=== PATIENT | female | born 1985 | race Caucasian/White ===

== ENCOUNTER 2022-08-19 13:58 | Emergency (ER) | payer BC, MEDICAID ==
[~2022-08-19] VITALS: Ht 170.2 cm; Wt 107.3 kg
[~2022-08-19 13:58] MED LIST: NO HOME MEDS; ONDA4TAB6 PO; SUCR1ORA2 PO
[2022-08-19 16:47] LABS: BASOPHILS % (AUTO) 0.5 % (0-1); EOSINOPHILS # (AUTO) 0.2 X10'3 (0-0.9); EOSINOPHILS % (AUTO) 1.5 % (0-6); HEMOGLOBIN 10.6 g/dl (12.0-16.0); LYMPHOCYTES # (AUTO) 1.8 X10'3 (1.1-4.8); LYMPHOCYTES % (AUTO) 17.7 % (21-51); MEAN CORPUSCULAR HEMOGLOBIN 29.2 PG (27.0-31.0); MEAN CORPUSCULAR HGB CONC 33.1 g/dL (33.0-36.5); MEAN CORPUSCULAR VOLUME 88.2 FL (78-98); MEAN PLATELET VOLUME 7.6 FL (7.4-10.4); MONOCYTES # (AUTO) 0.6 X10'3 (0-0.9); NEUTROPHILS # (AUTO) 7.7 X10'3 (1.8-7.7); NEUTROPHILS % (AUTO) 74.3 % (42-75); PLATELET COUNT 196 X10'3 (140-440); RED BLOOD COUNT 3.63 X10'6 (4.20-5.60); RED CELL DISTRIBUTION WIDTH 17.9 % (11.5-14.5); WHITE BLOOD COUNT 10.4 X10'3 (4.5-11.0)
[2022-08-19 17:02] LABS: ALANINE AMINOTRANSFERASE 43 U/L (12-78); ALBUMIN 2.5 G/DL (3.4-5.0); ALBUMIN/GLOBULIN RATIO 0.4 (1.1-1.5); ALKALINE PHOSPHATASE 142 IU/L (46-116); ANION GAP 7 (8-16); ASPARTATE AMINO TRANSFERASE 139 U/L (10-37); BILIRUBIN,TOTAL 1.1 MG/DL (0.1-1.0); BLOOD UREA NITROGEN 1 MG/DL (7-18); BUN/CREATININE RATIO 1.4 (10.0-20.0); CHLORIDE 96 MMOL/L (99-107); CREATININE 0.69 MG/DL (0.40-0.90); GLUCOSE 107 MG/DL (70-104); LIPASE 102 U/L (73-393); POTASSIUM 3.9 MMOL/L (3.5-5.1); SODIUM 132 MMOL/L (135-145); TOTAL CARBON DIOXIDE 29.4 MMOL/L (24-32); TOTAL PROTEIN 8.6 G/DL (6.4-8.2); eGFR > 90 ML/MIN
[2022-08-19 17:12] LABS: URINE HCG NEGATIVE (NEG)
[2022-08-19 17:32] LABS: CLARITY,URINE SLIGHTLY CLOUDY (Clear); COLOR,URINE AMBER (Yellow); GLUCOSE, URINE NEGATIVE (Neg); KETONES,URINE NEGATIVE (Neg); LEUKOCYTE ESTERASE ,URINE NEGATIVE (Neg); NITRITES, URINE NEGATIVE (Neg); OCCULT BLOOD,URINE SMALL (Neg); PH,URINE 7.5 (4.8-8.0); PROTEIN,URINE TRACE mg/dl (Neg); UROBILINOGEN,URINE 0.2 E.U/dL (0.2-1.0)
[2022-08-19 17:40] LABS: UA COLLECTION TYPE CLN CATCH MIDSTREAM
[2022-08-19 17:42] LABS: BACTERIA,URINE 1+ /HPF (Neg); RBC,URINE 0-2 /HPF (0-2); SQUAMOUS EPITHELIAL CELL,UR FEW /LPF (FEW)
[2022-08-19 20:05] VITALS: BP 150/75
[2022-08-25 12:44] LABS: OCCULT BLOOD STOOL POSITIVE (Neg)
== END 2022-08-19 20:07 | disposition home or self-care (01) ==
LOC: ER 14:00
DX: K92.2 Gastrointestinal hemorrhage, unspecified (principal); R16.0 Hepatomegaly, not elsewhere classified; Z72.89 Other problems related to lifestyle; Z98.51 Tubal ligation status; Z79.899 Other long term (current) drug therapy
CPT/HCPCS: 36415; 74176; 80053; 81001; 81025; 82272; 83690; 85025; 87088; 99284

== ENCOUNTER 2022-11-16 06:41 | Day surgery (SDC) | payer BC ==
[~2022-11-16] VITALS: Ht 170.2 cm; Wt 98.8 kg
[~2022-11-16 06:41] MED LIST changes: +BUSP5TAB3 PO; +CITA20TA26 PO; +FURO40TA4 PO; -NO HOME MEDS; -ONDA4TAB6 PO; +SPIR50TA5 PO; -SUCR1ORA2 PO
[2022-11-16] MEDS ORDERED: albumin 25% 100mL bottle x 1 IV PRN (07:00)
[2022-11-16] MEDS ORDERED: FURO40TA4 PO (07:16)
[2022-11-16] MEDS ORDERED: SPIR100T5 PO (07:17)
[2022-11-16 07:25] VITALS: BP 128/66
--- NOTE | 2022-11-16 08:40 | NUR ---
Procedure cancelled due to no fluid. Pt dc'd to home via ambulatory with all belongings.
== END 2022-11-16 08:45 | disposition home or self-care (01) ==
LOC: SSTAY O 06:41
PROVIDERS: ATTEND Radiology Vascular & Interventional Radiology
DX: R18.8 Other ascites (principal); Z53.8 Procedure and treatment not carried out for other reasons; J90 Pleural effusion, not elsewhere classified; R14.0 Abdominal distension (gaseous); F32.A Depression, unspecified; F41.9 Anxiety disorder, unspecified; E28.2 Polycystic ovarian syndrome; E66.9 Obesity, unspecified; Z68.34 Body mass index [BMI] 34.0-34.9, adult; D64.9 Anemia, unspecified; Z79.899 Other long term (current) drug therapy
CPT/HCPCS: 76604; 76705; A6258

== ENCOUNTER 2022-12-11 07:07 | Day surgery (SDC) | payer BC ==
[~2022-12-11] VITALS: Ht 170.2 cm; Wt 86.4 kg
[~2022-12-11 07:07] MED LIST changes: +SPIR100T5 PO; -SPIR50TA5 PO
[2022-12-11 07:16] VITALS: BP 131/66; PULSE 80; RESP 12; TEMP 98.4; O2SAT 100
[2022-12-11] MEDS ORDERED: normal saline 1000ml 1,000 ML IV PRN (07:30)
[2022-12-11 08:07] LABS: BASOPHILS % (AUTO) 0.4 % (0-1); EOSINOPHILS # (AUTO) 0.1 X10'3 (0-0.9); EOSINOPHILS % (AUTO) 2.8 % (0-6); HEMATOCRIT 28.6 % (35.0-45.0); HEMOGLOBIN 9.6 g/dl (12.0-16.0); LYMPHOCYTES # (AUTO) 1.7 X10'3 (1.1-4.8); LYMPHOCYTES % (AUTO) 33.6 % (21-51); MEAN CORPUSCULAR HEMOGLOBIN 32.4 PG (27.0-31.0); MEAN CORPUSCULAR HGB CONC 33.5 g/dL (33.0-36.5); MEAN CORPUSCULAR VOLUME 96.7 FL (78-98); MEAN PLATELET VOLUME 7.7 FL (7.4-10.4); MONOCYTES # (AUTO) 0.3 X10'3 (0-0.9); MONOCYTES % (AUTO) 5.9 % (2-12); NEUTROPHILS # (AUTO) 2.9 X10'3 (1.8-7.7); NEUTROPHILS % (AUTO) 57.3 % (42-75); PLATELET COUNT 122 X10'3 (140-440); RED BLOOD COUNT 2.96 X10'6 (4.20-5.60); RED CELL DISTRIBUTION WIDTH 20.7 % (11.5-14.5)
[2022-12-11 10:12] LABS: ANISOCYTOSIS 3+; PLATELET ESTIMATE DECREASED; POLYCHROMASIA FEW; ROULEAUX 1+
--- NOTE | 2022-12-11 10:40 | NUR ---
procedure cancelled per Dr. Thomson. per Dr. Thomson pt to take Vitamin 10mg daily x3 days prior to biopsy. rx called in to [place] pharmacist at [facility]. pt verbalizes understanding and will followup with [facility] to reschedule biopsy. resume all home meds per MD. pt discharged in stable condition. pt ambulated to private vehicle.
== END 2022-12-11 10:40 | disposition home or self-care (01) ==
LOC: SSTAY O 07:07
PROVIDERS: ATTEND Radiology Diagnostic Radiology
DX: K76.89 Other specified diseases of liver (principal); Z53.8 Procedure and treatment not carried out for other reasons; R18.8 Other ascites; D68.9 Coagulation defect, unspecified
CPT/HCPCS: 36415; 85025; 85610; J7030; 85008

== ENCOUNTER 2023-03-06 15:22 | Emergency (ER) | payer BC ==
[~2023-03-06] VITALS: Ht 170.2 cm; Wt 75.2 kg
[~2023-03-06 15:22] MED LIST changes: -FURO40TA4 PO
[2023-03-06 15:58] VITALS: BP 119/55; PULSE 68; RESP 16; TEMP 97.9; O2SAT 100
[2023-03-06 16:49] LABS: ALANINE AMINOTRANSFERASE 47 U/L (12-78); ALBUMIN 2.9 G/DL (3.4-5.0); ALKALINE PHOSPHATASE 104 IU/L (46-116); ANION GAP 7 (8-16); ASPARTATE AMINO TRANSFERASE 76 U/L (10-37); BILIRUBIN,TOTAL 8.1 MG/DL (0.1-1.0); BLOOD UREA NITROGEN 8 MG/DL (7-18); BUN/CREATININE RATIO 6.3 (10.0-20.0); CALCIUM 9.2 MG/DL (8.5-10.1); CHLORIDE 85 MMOL/L (99-107); CREATININE 1.27 MG/DL (0.40-0.90); POTASSIUM 4.1 MMOL/L (3.5-5.1); TOTAL CARBON DIOXIDE 24.2 MMOL/L (24-32); eCRCL 59 ML/MIN; eGFR 47 ML/MIN
[2023-03-06 16:55] LABS: ALBUMIN/GLOBULIN RATIO 0.5 (1.1-1.5); GLUCOSE 116 MG/DL (70-104); TOTAL PROTEIN 8.4 G/DL (6.4-8.2)
[2023-03-06 16:58] LABS: SODIUM 116 MMOL/L (135-145)
[2023-03-06 17:00] LABS: BASOPHILS # (AUTO) 0.1 X10'3 (0-0.2); BASOPHILS % (AUTO) 1.1 % (0-1); EOSINOPHILS # (AUTO) 0.1 X10'3 (0-0.9); EOSINOPHILS % (AUTO) 1.8 % (0-6); HEMOGLOBIN 7.8 g/dl (12.0-16.0); LYMPHOCYTES # (AUTO) 1.6 X10'3 (1.1-4.8); LYMPHOCYTES % (AUTO) 21.6 % (21-51); MEAN CORPUSCULAR HEMOGLOBIN 35.2 PG (27.0-31.0); MEAN CORPUSCULAR HGB CONC 35.6 g/dL (33.0-36.5); MEAN CORPUSCULAR VOLUME 98.7 FL (78-98); MEAN PLATELET VOLUME 6.8 FL (7.4-10.4); MONOCYTES # (AUTO) 0.5 X10'3 (0-0.9); MONOCYTES % (AUTO) 6.3 % (2-12); NEUTROPHILS # (AUTO) 5.2 X10'3 (1.8-7.7); NEUTROPHILS % (AUTO) 69.2 % (42-75); PLATELET COUNT 95 X10'3 (140-440); RED BLOOD COUNT 2.21 X10'6 (4.20-5.60); RED CELL DISTRIBUTION WIDTH 15.4 % (11.5-14.5); WHITE BLOOD COUNT 7.5 X10'3 (4.5-11.0)
[2023-03-06 17:03] LABS: HEMATOCRIT 21.8 % (35.0-45.0)
[2023-03-06 17:24] LABS: PLATELET ESTIMATE DECREASED
[2023-03-06 17:25] LABS: BURR CELLS 2+; SCHISTOCYTES FEW
[2023-03-06 17:26] LABS: ROULEAUX 1+
--- NOTE | 2023-03-06 17:28 | NUR ---
LAB CALLED TO SAY THAT PATIENT HAS ANTIBODY IN HER BLOOD AND IT WILL TAKE EXTRA TIME TO CROSSMATCH BLOOD IS ANY IS ORDERED FOR HER. (PATIENT IS NOT IN LOBBY AT THIS TIME.)
== END 2023-03-06 19:59 | disposition left against medical advice (07) ==
LOC: ER 15:22
DX: R10.84 Generalized abdominal pain (principal); R53.1 Weakness; R11.2 Nausea with vomiting, unspecified; Z53.21 Procedure and treatment not carried out due to patient leaving prior to being seen by health care provider
CPT/HCPCS: 36415; 80053; 85008; 85025; 86885; 86900; 86901; 93005; 99281

== ENCOUNTER 2023-03-13 11:13 | Inpatient (IN) | payer BC ==
[~2023-03-13] VITALS: Ht 170.2 cm; Wt 77.8 kg
[2023-03-13 13:25] LABS: ALANINE AMINOTRANSFERASE 45 U/L (12-78); ALBUMIN 2.8 G/DL (3.4-5.0); ALKALINE PHOSPHATASE 148 IU/L (46-116); AMYLASE 51 U/L (25-115); ANION GAP 8 (8-16); ASPARTATE AMINO TRANSFERASE 84 U/L (10-37); BILIRUBIN,TOTAL 7.9 MG/DL (0.1-1.0); BLOOD UREA NITROGEN 9 MG/DL (7-18); BUN/CREATININE RATIO 6.7 (10.0-20.0); CALCIUM 8.8 MG/DL (8.5-10.1); CHLORIDE 89 MMOL/L (99-107); CREATININE 1.35 MG/DL (0.40-0.90); LIPASE 37 U/L (16-77); POTASSIUM 3.9 MMOL/L (3.5-5.1); TOTAL CARBON DIOXIDE 23.3 MMOL/L (24-32); eCRCL 55 ML/MIN; eGFR 44 ML/MIN
[2023-03-13 13:26] LABS: ALBUMIN/GLOBULIN RATIO 0.5 (1.1-1.5); GLUCOSE 119 MG/DL (70-104); SODIUM 120 MMOL/L (135-145); TOTAL PROTEIN 8.2 G/DL (6.4-8.2)
[2023-03-13 13:32] LABS: BASOPHILS % (AUTO) 0.3 % (0-1); EOSINOPHILS # (AUTO) 0.1 X10'3 (0-0.9); EOSINOPHILS % (AUTO) 1.4 % (0-6); HEMOGLOBIN 7.1 g/dl (12.0-16.0); LYMPHOCYTES # (AUTO) 1.2 X10'3 (1.1-4.8); MEAN PLATELET VOLUME 6.6 FL (7.4-10.4); MONOCYTES # (AUTO) 0.3 X10'3 (0-0.9); MONOCYTES % (AUTO) 4.6 % (2-12); NEUTROPHILS # (AUTO) 4.6 X10'3 (1.8-7.7); NEUTROPHILS % (AUTO) 74.7 % (42-75); PLATELET COUNT 80 X10'3 (140-440); WHITE BLOOD COUNT 6.2 X10'3 (4.5-11.0)
--- NOTE | 2023-03-13 14:00 | NUR ---
PT IN RM 4, ON MONITOR, FAMILY AT BS.
[2023-03-13 14:02] LABS: MEAN CORPUSCULAR VOLUME 99.4 FL (78-98)
[2023-03-13 14:03] LABS: MEAN CORPUSCULAR HEMOGLOBIN 35.6 PG (27.0-31.0); MEAN CORPUSCULAR HGB CONC 35.8 g/dL (33.0-36.5)
[2023-03-13 14:05] LABS: HEMATOCRIT 19.9 % (35.0-45.0)
--- NOTE | 2023-03-13 14:24 | NUR ---
IV SL PLACED BY [employer] ENGINEER HELPER W/US. PT RESTING IN NAD WITH FAMILY AT BS.
[2023-03-13] MEDS ORDERED: normal saline 1000ml 1,000 ML IV ONE (14:30)
--- NOTE | 2023-03-13 14:47 | NUR ---
BLOOD DRAWN FROM [facility] FOR LAB. PT TOLERATED WELL
--- NOTE | 2023-03-13 16:10 | NUR ---
PT WITH NO CHANGE FROM PREVIOUS. FAMILY AT BS, PT TO BE ADMITTED.
[2023-03-13] MEDS ORDERED: mag hydrox/Alum hydrox/simeth 30ml oral suspension PO PRN (16:45)
[2023-03-13] MEDS ORDERED: magnesium 4gm in 100ml NS 100 ML IV PRN (16:45)
[2023-03-13] MEDS ORDERED: magnesium hydroxide 30ml (MOM) UD suspension PO PRN (16:45)
[2023-03-13] MEDS ORDERED: potassium Cl 20 mEq SR tablet PO PRN ×2 (16:45)
[2023-03-13] MEDS ORDERED: acetaminophen 325mg tablet PO PRN (16:45)
[2023-03-13] MEDS ORDERED: morphine 2 MG/ML inj. syringe IV PRN ×2 (16:45)
[2023-03-13] MEDS ORDERED: potassium Cl 40MEQ/1/2NS 520ml 520 ML IV PRN (16:45)
[2023-03-13] MEDS ORDERED: magnesium 2GM in 50ml NS 50 ML IV PRN (16:45)
--- NOTE | 2023-03-13 17:37 | NUR ---
PT EATING PM MEAL WITH VISITOR AT .
[2023-03-13 18:00] VITALS: BP 104/41; PULSE 80; RESP 18; TEMP 98.4
--- NOTE | 2023-03-13 18:00 | NUR ---
Patient in room ORTHO 4013. I have received report from RACHELE Rodriguez and had the opportunity to ask questions and assume patient care.
--- NOTE | 2023-03-13 18:30 | NUR ---
Patient in room ORTHO 4013. I have received report from RACHELE Rodriguez and had the opportunity to ask questions and assume patient care.
--- NOTE | 2023-03-13 18:31 | NUR ---
Problems reprioritized. Patient report given, questions answered & plan of care reviewed with DANNY Klein.
[2023-03-13] MEDS: normal saline 1000ml 1,000 ML IV SCH ×2 (19:04→23:50)
[2023-03-13] MEDS ORDERED: BUSP10TA4 PO (19:59)
[2023-03-13 20:00] VITALS: RESP 18; O2SAT 99
[2023-03-13] MEDS: K and/or MAG REPLACEMENT MC SCH (21:09)
[2023-03-13] MEDS: docusate sod 100mg capsule PO SCH (21:33)
[2023-03-13 22:00] VITALS: BP 97/56; PULSE 82; RESP 18; TEMP 98; O2SAT 99
[2023-03-14] VITALS (10 sets, daily range): BP systolic 102–119; BP diastolic 35–51; PULSE 72–81; RESP 15–18; TEMP 98.2–99.8; O2SAT 98–100
--- NOTE | 2023-03-14 06:42 | NUR ---
Problems reprioritized. Patient report given, questions answered & plan of care reviewed with DANNY Waite.
--- NOTE | 2023-03-14 06:44 | NUR ---
Patient in room ORTHO 4013. I have received report from Latoya DELGADO and had the opportunity to ask questions and assume patient care.
[2023-03-14] MEDS: docusate sod 100mg capsule PO SCH ×2 (07:48→20:00)
[2023-03-14 07:50] LABS: BASOPHILS % (AUTO) 0.9 % (0-1); EOSINOPHILS # (AUTO) 0.1 X10'3 (0-0.9); EOSINOPHILS % (AUTO) 1.3 % (0-6); LYMPHOCYTES # (AUTO) 1.3 X10'3 (1.1-4.8); MEAN CORPUSCULAR HEMOGLOBIN 35.4 PG (27.0-31.0); MEAN CORPUSCULAR HGB CONC 35.4 g/dL (33.0-36.5); MEAN PLATELET VOLUME 6.8 FL (7.4-10.4); MONOCYTES # (AUTO) 0.3 X10'3 (0-0.9); MONOCYTES % (AUTO) 5.5 % (2-12); NEUTROPHILS # (AUTO) 3.3 X10'3 (1.8-7.7); NEUTROPHILS % (AUTO) 66.3 % (42-75); PLATELET COUNT 81 X10'3 (140-440); RED BLOOD COUNT 1.94 X10'6 (4.20-5.60); WHITE BLOOD COUNT 4.9 X10'3 (4.5-11.0)
[2023-03-14 07:52] LABS: HEMATOCRIT 19.4 % (35.0-45.0); HEMOGLOBIN 6.9 g/dl (12.0-16.0)
[2023-03-14] MEDS: ondansetron/PF 4mg/2ml inj IV PRN (07:52)
--- NOTE | 2023-03-14 07:56 | NUR ---
CRITICAL HGB 6.9, HCT 19.4, DR MINOR AWAITING CALL BACK PAGER ID: [phone] MESSAGE: TITI 4013B: HGB 6.9, HCT 19.4. THANK YOU ARNULFO [id number]
[2023-03-14 07:58] LABS: ALANINE AMINOTRANSFERASE 43 U/L (12-78); ALBUMIN 2.6 G/DL (3.4-5.0); ALKALINE PHOSPHATASE 132 IU/L (46-116); ANION GAP 9 (8-16); ASPARTATE AMINO TRANSFERASE 77 U/L (10-37); BILIRUBIN,TOTAL 7.3 MG/DL (0.1-1.0); BLOOD UREA NITROGEN 9 MG/DL (7-18); BUN/CREATININE RATIO 7.4 (10.0-20.0); CALCIUM 8.8 MG/DL (8.5-10.1); CHLORIDE 95 MMOL/L (99-107); CREATININE 1.21 MG/DL (0.40-0.90); GLUCOSE 94 MG/DL (70-104); MAGNESIUM 1.6 MG/DL (1.5-2.4); POTASSIUM 4.1 MMOL/L (3.5-5.1); SODIUM 127 MMOL/L (135-145); TOTAL CARBON DIOXIDE 23.2 MMOL/L (24-32); eCRCL 62 ML/MIN; eGFR 50 ML/MIN
[2023-03-14] MEDS: K and/or MAG REPLACEMENT MC SCH ×2 (08:00→20:00)
[2023-03-14 08:04] LABS: ALBUMIN/GLOBULIN RATIO 0.5 (1.1-1.5); TOTAL PROTEIN 7.5 G/DL (6.4-8.2)
[2023-03-14] MEDS: normal saline 1000ml 1,000 ML IV SCH (13:51)
--- NOTE | 2023-03-14 17:38 | NUR ---
PAGER ID: [phone] MESSAGE: Ravindra hassan re: [id number] Avani, Patient has home medications that need to be addressed, she doesnt want to miss her medications for depression. Addendum: 03/14/23 at 1757 by Zeke Herron RN This message sent to alfonso RODRIGUEZ.
--- NOTE | 2023-03-14 17:56 | NUR ---
PAGER ID: [phone] MESSAGE: Ravindra Bennett re: Avani Patient wanting to make sure home medications are addressed before end of shift. Patient needs her depression medications. Thanks
--- NOTE | 2023-03-14 18:32 | NUR ---
Patient in room ORTHO 4013b. I have received report from Kaye RN and had the opportunity to ask questions and assume patient care.
[2023-03-14] MEDS: busPIRone 5mg tablet PO SCH (20:25)
[2023-03-14 21:37] LABS: MEAN CORPUSCULAR HEMOGLOBIN 35.1 PG (27.0-31.0); MEAN CORPUSCULAR HGB CONC 36.2 g/dL (33.0-36.5); MEAN CORPUSCULAR VOLUME 96.9 FL (78-98); MEAN PLATELET VOLUME 6.8 FL (7.4-10.4); PLATELET COUNT 76 X10'3 (140-440); RED BLOOD COUNT 1.98 X10'6 (4.20-5.60); RED CELL DISTRIBUTION WIDTH 17.3 % (11.5-14.5); WHITE BLOOD COUNT 5.6 X10'3 (4.5-11.0)
[2023-03-14 21:47] LABS: HEMATOCRIT 19.2 % (35.0-45.0)
--- NOTE | 2023-03-14 22:25 | NUR ---
INFORMED DR. STEWART ABOUT HGB 7.0,ADVISED TO RECHECK CBC IN AM.
[2023-03-15] VITALS (10 sets, daily range): BP systolic 103–116; BP diastolic 31–60; PULSE 72–85; RESP 14–16; TEMP 97.8–98.8; O2SAT 96–100
[2023-03-15] MEDS: normal saline 1000ml 1,000 ML IV SCH ×3 (00:03→21:18)
[2023-03-15 06:39] LABS: EOSINOPHILS # (AUTO) 0.1 X10'3 (0-0.9); LYMPHOCYTES # (AUTO) 1.2 X10'3 (1.1-4.8); LYMPHOCYTES % (AUTO) 24.4 % (21-51); MEAN CORPUSCULAR VOLUME 98.4 FL (78-98); MEAN PLATELET VOLUME 6.8 FL (7.4-10.4); MONOCYTES # (AUTO) 0.4 X10'3 (0-0.9); MONOCYTES % (AUTO) 7.4 % (2-12); NEUTROPHILS # (AUTO) 3.2 X10'3 (1.8-7.7)
[2023-03-15 06:46] LABS: BASOPHILS % (AUTO) 0.3 % (0-1); EOSINOPHILS % (AUTO) 2.3 % (0-6); MEAN CORPUSCULAR HEMOGLOBIN 35.6 PG (27.0-31.0); MEAN CORPUSCULAR HGB CONC 36.2 g/dL (33.0-36.5); NEUTROPHILS % (AUTO) 65.6 % (42-75); PLATELET COUNT 75 X10'3 (140-440); RED BLOOD COUNT 1.97 X10'6 (4.20-5.60); RED CELL DISTRIBUTION WIDTH 17.6 % (11.5-14.5); WHITE BLOOD COUNT 4.9 X10'3 (4.5-11.0)
[2023-03-15 07:02] LABS: HEMATOCRIT 19.4 % (35.0-45.0)
--- NOTE | 2023-03-15 07:10 | NUR ---
notified of critical h/h.
[2023-03-15 07:13] LABS: ALANINE AMINOTRANSFERASE 43 U/L (12-78); ALBUMIN 2.4 G/DL (3.4-5.0); ALKALINE PHOSPHATASE 103 IU/L (46-116); ANION GAP 7 (8-16); ASPARTATE AMINO TRANSFERASE 78 U/L (10-37); BILIRUBIN,TOTAL 7.3 MG/DL (0.1-1.0); BLOOD UREA NITROGEN 11 MG/DL (7-18); BUN/CREATININE RATIO 9.2 (10.0-20.0); CALCIUM 8.7 MG/DL (8.5-10.1); CHLORIDE 98 MMOL/L (99-107); GLUCOSE 92 MG/DL (70-104); MAGNESIUM 1.6 MG/DL (1.5-2.4); POTASSIUM 4.3 MMOL/L (3.5-5.1); SODIUM 129 MMOL/L (135-145); TOTAL CARBON DIOXIDE 24.2 MMOL/L (24-32); eCRCL 62 ML/MIN; eGFR 51 ML/MIN
[2023-03-15 07:24] LABS: ALBUMIN/GLOBULIN RATIO 0.5 (1.1-1.5); TOTAL PROTEIN 7.3 G/DL (6.4-8.2)
[2023-03-15] MEDS: busPIRone 5mg tablet PO SCH ×2 (07:48→20:51)
[2023-03-15] MEDS: docusate sod 100mg capsule PO SCH ×2 (07:48→20:00)
[2023-03-15] MEDS: K and/or MAG REPLACEMENT MC SCH ×2 (09:05→20:00)
[2023-03-15] MEDS ORDERED: PEG 3350/Na sulf,bicarb,Cl/KCl oral sol 4 liter bottle PO ONE (09:30)
[2023-03-15 10:12] LABS: ACANTHOCYTES 1+; ANISOCYTOSIS 1+; PLATELET ESTIMATE DECREASED
--- NOTE | 2023-03-15 16:25 | NUR ---
I charted my assessment on patient for RACHELE Anderson and have relinquished all care to RACHELE Anderson.
[2023-03-15] MEDS ORDERED: octreotide 100mcg/1 ml ampule IV ONE (17:05)
[2023-03-15 18:16] LABS: HEMOGLOBIN 7.6 g/dl (12.0-16.0); MEAN CORPUSCULAR HEMOGLOBIN 34.8 PG (27.0-31.0); MEAN CORPUSCULAR HGB CONC 35.5 g/dL (33.0-36.5); MEAN PLATELET VOLUME 6.7 FL (7.4-10.4); PLATELET COUNT 73 X10'3 (140-440); RED BLOOD COUNT 2.19 X10'6 (4.20-5.60); RED CELL DISTRIBUTION WIDTH 17.5 % (11.5-14.5); WHITE BLOOD COUNT 5.3 X10'3 (4.5-11.0)
[2023-03-15 18:30] LABS: HEMATOCRIT 21.5 % (35.0-45.0)
--- NOTE | 2023-03-15 19:30 | NUR ---
Assumed care of pt at this time
--- NOTE | 2023-03-15 20:00 | NUR ---
Spoke with Astrid at [facility] about this time she was already aware of pts current labs, pt has a bed available and she is informed that we are unable to get a ride from [facility] until 03/17 at 10am. She was to speak to about this. SHe also was given our nursing supervisors phone number.
[2023-03-15] MEDS: ondansetron/PF 4mg/2ml inj IV PRN (21:12)
--- NOTE | 2023-03-16 02:55 | NUR ---
Paged Dr. Singleton regarding orders, no labs for today. She wants Dr. Hackett to order them for today 03/16.
[2023-03-16 06:00] VITALS: BP 118/56; PULSE 84; RESP 12; TEMP 98.7; O2SAT 96
[2023-03-16 06:49] LABS: BASOPHILS % (AUTO) 0.5 % (0-1); EOSINOPHILS # (AUTO) 0.1 X10'3 (0-0.9); EOSINOPHILS % (AUTO) 2.2 % (0-6); HEMOGLOBIN 7.5 g/dl (12.0-16.0); LYMPHOCYTES # (AUTO) 1.3 X10'3 (1.1-4.8); LYMPHOCYTES % (AUTO) 27.4 % (21-51); MEAN CORPUSCULAR HEMOGLOBIN 34.8 PG (27.0-31.0); MEAN CORPUSCULAR HGB CONC 35.4 g/dL (33.0-36.5); MEAN CORPUSCULAR VOLUME 98.3 FL (78-98); MEAN PLATELET VOLUME 6.6 FL (7.4-10.4); MONOCYTES # (AUTO) 0.3 X10'3 (0-0.9); MONOCYTES % (AUTO) 6.4 % (2-12); NEUTROPHILS # (AUTO) 2.9 X10'3 (1.8-7.7); NEUTROPHILS % (AUTO) 63.5 % (42-75); PLATELET COUNT 72 X10'3 (140-440); RED BLOOD COUNT 2.14 X10'6 (4.20-5.60); RED CELL DISTRIBUTION WIDTH 17.3 % (11.5-14.5); WHITE BLOOD COUNT 4.6 X10'3 (4.5-11.0)
[2023-03-16 06:51] LABS: HEMATOCRIT 21.1 % (35.0-45.0)
--- NOTE | 2023-03-16 06:58 | NUR ---
Report to Monica
[2023-03-16 07:13] LABS: ALANINE AMINOTRANSFERASE 45 U/L (12-78); ALBUMIN 2.3 G/DL (3.4-5.0); ALKALINE PHOSPHATASE 104 IU/L (46-116); ANION GAP 8 (8-16); ASPARTATE AMINO TRANSFERASE 80 U/L (10-37); BLOOD UREA NITROGEN 9 MG/DL (7-18); BUN/CREATININE RATIO 7.7 (10.0-20.0); CALCIUM 8.8 MG/DL (8.5-10.1); CHLORIDE 104 MMOL/L (99-107); CREATININE 1.17 MG/DL (0.40-0.90); GLUCOSE 86 MG/DL (70-104); MAGNESIUM 1.8 MG/DL (1.5-2.4); POTASSIUM 4.5 MMOL/L (3.5-5.1); SODIUM 133 MMOL/L (135-145); TOTAL CARBON DIOXIDE 21.2 MMOL/L (24-32); eCRCL 64 ML/MIN; eGFR 52 ML/MIN
[2023-03-16 07:19] LABS: ALBUMIN/GLOBULIN RATIO 0.5 (1.1-1.5); TOTAL PROTEIN 6.9 G/DL (6.4-8.2)
[2023-03-16] MEDS: K and/or MAG REPLACEMENT MC SCH (08:00)
[2023-03-16] MEDS: docusate sod 100mg capsule PO SCH (08:13)
[2023-03-16] MEDS: busPIRone 5mg tablet PO SCH (08:13)
[2023-03-16] MEDS: normal saline 1000ml 1,000 ML IV SCH (10:09)
--- NOTE | 2023-03-16 12:40 | NUR ---
Attempted to give report to receiving nurse at [facility]. Receiving staff states that nurse unable to take report at the time. will try again.
--- NOTE | 2023-03-16 13:51 | NUR ---
Second attempt to provide report to accepting facility/ nurse prior to transport. No answer from the wing. Will try again.
--- NOTE | 2023-03-16 14:22 | NUR ---
Patient discharged via [facility] to [place] [facility] All personal belongings sent with, alert and appropriate at the time of discharge. Report given to [facility]/ airflight crew
--- NOTE | 2023-03-16 16:25 | NUR ---
MAINTENANCE SHOP WELDER documentation: I have reviewed and agree with all interventions, assessments performed and documented by .Danny JEFFREY
== END 2023-03-16 14:19 | disposition critical access hospital (66) | DRG 441 ==
LOC: ER 11:13 → ED HOLD 16:56 → EDBEDREQ 17:06 → ORTHO 4S 17:59
PROVIDERS: ADMIT Family Medicine; ATTEND Family Medicine
PROC: 30233N1 Transfusion of Nonautologous Red Blood Cells into Peripheral Vein, Percutaneous Approach (ICD-10-PCS; principal; 2023-03-14)
DX: K72.90 Hepatic failure, unspecified without coma (principal); N17.0 Acute kidney failure with tubular necrosis; D64.9 Anemia, unspecified; Z80.8 Family history of malignant neoplasm of other organs or systems
CPT/HCPCS: 36415; 36430; 80053; 82140; 82150; 83690; 83735; 85008; 85025; 85027; 86885; 86900; 86901; 86922; 87081; 96360; 99285; G0378; J2354; J2405; J7030; J7040; J7050; P9016

== ENCOUNTER 2023-07-12 21:16 | Emergency (ER) | payer BC, MEDICAID ==
[~2023-07-12] VITALS: Ht 170.2 cm; Wt 61.0 kg
[~2023-07-12 21:16] MED LIST changes: +BUSP10TA4 PO; -BUSP5TAB3 PO; -SPIR100T5 PO
[2023-07-12 22:11] LABS: BASOPHILS % (AUTO) 0.8 % (0-1); HEMATOCRIT 23.2 % (35.0-45.0); LYMPHOCYTES # (AUTO) 0.6 X10'3 (1.1-4.8); MEAN CORPUSCULAR VOLUME 89.1 FL (78-98); MONOCYTES # (AUTO) 0.2 X10'3 (0-0.9); NEUTROPHILS # (AUTO) 1.5 X10'3 (1.8-7.7)
[2023-07-12 22:13] LABS: EOSINOPHILS % (AUTO) 1.1 % (0-6); HEMOGLOBIN 7.8 g/dl (12.0-16.0); MEAN CORPUSCULAR HEMOGLOBIN 30.1 PG (27.0-31.0); MEAN CORPUSCULAR HGB CONC 33.8 g/dL (33.0-36.5); MEAN PLATELET VOLUME 8.4 FL (7.4-10.4); MONOCYTES % (AUTO) 7.6 % (2-12); NEUTROPHILS % (AUTO) 65.5 % (42-75); PLATELET COUNT 130 X10'3 (140-440); RED CELL DISTRIBUTION WIDTH 17.9 % (11.5-14.5); WHITE BLOOD COUNT 2.3 X10'3 (4.5-11.0)
[2023-07-12] MEDS: ondansetron 4mg rapidly disintigrating tab PO ONE (23:22)
[2023-07-12] MEDS: oxyCODONE IR 5mg (immed. release) tablet PO ONE (23:22)
[2023-07-12 23:32] LABS: ALANINE AMINOTRANSFERASE 26 U/L (12-78); ALBUMIN 3.5 G/DL (3.4-5.0); ALBUMIN/GLOBULIN RATIO 0.9 (1.1-1.5); ALKALINE PHOSPHATASE 90 IU/L (46-116); ANION GAP 10 (8-16); ASPARTATE AMINO TRANSFERASE 12 U/L (10-37); BILIRUBIN,TOTAL 1.2 MG/DL (0.1-1.0); BLOOD UREA NITROGEN 49 MG/DL (7-18); BUN/CREATININE RATIO 15.8 (10.0-20.0); CALCIUM 9.1 MG/DL (8.5-10.1); CHLORIDE 102 MMOL/L (99-107); GLUCOSE 115 MG/DL (70-104); POTASSIUM 5.9 MMOL/L (3.5-5.1); SODIUM 134 MMOL/L (135-145); TOTAL CARBON DIOXIDE 21.6 MMOL/L (24-32); TOTAL PROTEIN 7.6 G/DL (6.4-8.2); eCRCL 24 ML/MIN; eGFR 17 ML/MIN
[2023-07-12] MEDS ORDERED: calcium gluconate inj. 3 GM in normal saline 100ml IV soln 100 ML IV ONE (23:50)
[2023-07-13] MEDS: normal saline 1000ml 1,000 ML IV ONE (00:39)
[2023-07-13] MEDS: piperacillin/tazo 3.375gm/50ml 50 ML IV ONE (00:40)
[2023-07-13] MEDS: CALCIUM GLUC 1gm/50ml NACL,iso 50 ML IV ONE ×3 (00:41→02:31)
[2023-07-13 01:24] LABS: ANISOCYTOSIS 1+; ELLIPTOCYTES FEW; PLATELET ESTIMATE DECREASED; SCHISTOCYTES FEW; TOTAL CELLS COUNTED 100
[2023-07-13 01:25] LABS: HYPERSEGMENTED NEUTROPHILS FEW
[2023-07-13] MEDS: SODIUM ZIRCONIUM CYCLOSILICATE 10 GM POWD.PACK PO SCH (03:09)
[2023-07-13 04:28] LABS: BILIRUBIN,URINE NEGATIVE (Neg); CLARITY,URINE SLIGHTLY CLOUDY (Clear); COLOR,URINE YELLOW (Yellow); GLUCOSE, URINE NEGATIVE (Neg); KETONES,URINE NEGATIVE (Neg); LEUKOCYTE ESTERASE ,URINE NEGATIVE (Neg); NITRITES, URINE NEGATIVE (Neg); OCCULT BLOOD,URINE MODERATE (Neg); PH,URINE 5.5 (4.8-8.0); PROTEIN,URINE TRACE mg/dl (Neg); UROBILINOGEN,URINE 0.2 E.U/dL (0.2-1.0)
[2023-07-13 04:33] LABS: UA COLLECTION TYPE CLN CATCH MIDSTREAM
[2023-07-13 04:37] LABS: BACTERIA,URINE 1+ /HPF (Neg); MUCUS STRANDS NONE SEEN /LPF (Neg); SQUAMOUS EPITHELIAL CELL,UR MANY /LPF (FEW); WBC,URINE 0-4 /HPF (0-4)
[2023-07-13 04:38] LABS: COARSE GRANULAR CAST 0-3 /LPF (NEGATIVE)
[2023-07-13 04:39] LABS: CAL OXALATE CRYSTALS 1+ /HPF (NEGATIVE)
[2023-07-13] MEDS ORDERED: FLUC100T64 PO (04:47)
[2023-07-13] MEDS ORDERED: ATOV750O32 (04:47)
[2023-07-13] MEDS ORDERED: PRED15SO71 PO (04:47)
[2023-07-13] MEDS ORDERED: FOLI0.8T19 PO (04:47)
[2023-07-13] MEDS ORDERED: PANT-47 PO (04:47)
[2023-07-13] MEDS ORDERED: LOP12.5T PO (04:47)
[2023-07-13] MEDS ORDERED: MAGN400C PO (04:47)
[2023-07-13] MEDS ORDERED: MYCO500T PO (04:47)
[2023-07-13] MEDS ORDERED: VALG450T13 PO (04:47)
[2023-07-13] MEDS ORDERED: MYCO250C46 PO (04:47)
[2023-07-13] MEDS ORDERED: ASPI-611 PO (04:47)
[2023-07-13] MEDS ORDERED: TACR1CAP2 PO (04:47)
[2023-07-13] MEDS ORDERED: SODIUM ZIRCONIUM CYCLOSILICATE 10 GM POWD.PACK PO SCH (08:00)
[2023-07-13] MEDS: oxyCODONE IR 5mg (immed. release) tablet PO ONE ×3 (08:46→21:24)
[2023-07-13 14:09] LABS: ALBUMIN 3.1 G/DL (3.4-5.0); ANION GAP 15 (8-16); BLOOD UREA NITROGEN 49 MG/DL (7-18); BUN/CREATININE RATIO 15.2 (10.0-20.0); CALCIUM 9.3 MG/DL (8.5-10.1); CHLORIDE 101 MMOL/L (99-107); CREATININE 3.22 MG/DL (0.40-0.90); GLUCOSE 112 MG/DL (70-104); POTASSIUM 5.6 MMOL/L (3.5-5.1); SODIUM 136 MMOL/L (135-145); TOTAL CARBON DIOXIDE 20.2 MMOL/L (24-32); eCRCL 23 ML/MIN; eGFR 16 ML/MIN
[2023-07-13 22:01] VITALS: BP 124/62; PULSE 73; RESP 18; TEMP 98.1; O2SAT 98
== END 2023-07-13 22:09 | disposition short-term general hospital (02) ==
LOC: ER 21:17
DX: N17.9 Acute kidney failure, unspecified (principal); Z20.822 Contact with and (suspected) exposure to COVID-19; E87.6 Hypokalemia; Z88.8 Allergy status to other drugs, medicaments and biological substances; Z88.2 Allergy status to sulfonamides; Z79.82 Long term (current) use of aspirin; Z79.899 Other long term (current) drug therapy; Z98.51 Tubal ligation status
CPT/HCPCS: 36415; 71045; 74176; 80048; 80053; 81001; 83605; 84145; 85007; 85025; 87040; 87502; 87503; 87811; 96365; 96366; 96368; 99291; J0610; J2543; J7030; 99285

== ENCOUNTER 2023-11-18 11:22 | Emergency (ER) | payer BC, MEDICAID ==
[~2023-11-18] VITALS: Ht 170.2 cm; Wt 64.0 kg
[~2023-11-18 11:22] MED LIST changes: +ASPI-611 PO; +ATOV750O32; -CITA20TA26 PO; +FLUC100T64 PO; +FOLI0.8T52 PO; +LOP12.5T PO; +MAGN400C PO; +MYCO250C46 PO; +MYCO500T PO; +PANT-47 PO; +PRED15SO71 PO; +TACR1CAP2 PO; +VALG450T13 PO
[2023-11-18 11:30] VITALS: TEMP 98.6
[2023-11-18 12:04] LABS: BILIRUBIN,URINE NEGATIVE (Neg); CLARITY,URINE CLOUDY (Clear); COLOR,URINE STRAW (Yellow); GLUCOSE, URINE NEGATIVE (Neg); KETONES,URINE NEGATIVE (Neg); LEUKOCYTE ESTERASE ,URINE SMALL (Neg); NITRITES, URINE POSITIVE (Neg); OCCULT BLOOD,URINE LARGE (Neg); PROTEIN,URINE 100 mg/dl (Neg); UROBILINOGEN,URINE 0.2 E.U/dL (0.2-1.0)
[2023-11-18 12:08] LABS: HEMOGLOBIN 11.7 g/dl (12.0-16.0)
[2023-11-18 12:09] LABS: UA COLLECTION TYPE CLN CATCH MIDSTREAM
[2023-11-18 12:10] LABS: BASOPHILS % (AUTO) 0.9 % (0-1); EOSINOPHILS # (AUTO) 0.1 X10'3 (0-0.9); EOSINOPHILS % (AUTO) 2.1 % (0-6); HEMATOCRIT 34.3 % (35.0-45.0); LYMPHOCYTES # (AUTO) 0.8 X10'3 (1.1-4.8); LYMPHOCYTES % (AUTO) 23.3 % (21-51); MEAN CORPUSCULAR HEMOGLOBIN 31.3 PG (27.0-31.0); MEAN CORPUSCULAR HGB CONC 34.1 g/dL (33.0-36.5); MEAN CORPUSCULAR VOLUME 91.6 FL (78-98); MEAN PLATELET VOLUME 7.1 FL (7.4-10.4); MONOCYTES # (AUTO) 0.3 X10'3 (0-0.9); NEUTROPHILS # (AUTO) 2.2 X10'3 (1.8-7.7); NEUTROPHILS % (AUTO) 64.7 % (42-75); PLATELET COUNT 199 X10'3 (140-440); RED BLOOD COUNT 3.74 X10'6 (4.20-5.60); WHITE BLOOD COUNT 3.4 X10'3 (4.5-11.0)
[2023-11-18 12:10] LABS: URINE HCG NEGATIVE (NEG)
[2023-11-18 12:16] LABS: BACTERIA,URINE 2+ /HPF (Neg); MUCUS STRANDS NONE SEEN /LPF (Neg); SQUAMOUS EPITHELIAL CELL,UR FEW /LPF (FEW); WBC CLUMPS,URINE MANY /HPF (NEGATIVE); WBC,URINE TNTC /HPF (0-4)
[2023-11-18 12:27] LABS: ALANINE AMINOTRANSFERASE 28 U/L (12-78); ALBUMIN 3.7 G/DL (3.4-5.0); ALBUMIN/GLOBULIN RATIO 0.9 (1.1-1.5); ALKALINE PHOSPHATASE 89 IU/L (46-116); ANION GAP 9 (8-16); ASPARTATE AMINO TRANSFERASE 17 U/L (10-37); BILIRUBIN,TOTAL 1.1 MG/DL (0.1-1.0); BLOOD UREA NITROGEN 24 MG/DL (7-18); BUN/CREATININE RATIO 15.8 (10.0-20.0); CALCIUM 9.4 MG/DL (8.5-10.1); CHLORIDE 103 MMOL/L (99-107); CREATININE 1.52 MG/DL (0.40-0.90); GLUCOSE 109 MG/DL (70-104); LIPASE 29 U/L (16-77); POTASSIUM 5.2 MMOL/L (3.5-5.1); SODIUM 138 MMOL/L (135-145); TOTAL CARBON DIOXIDE 25.8 MMOL/L (24-32); TOTAL PROTEIN 7.6 G/DL (6.4-8.2); eCRCL 49 ML/MIN; eGFR 38 ML/MIN
[2023-11-18] MEDS: morphine 4 MG/ML inj SYRINge IV ONE (12:56)
[2023-11-18] MEDS: ondansetron/PF 4mg/2ml inj IV ONE (12:56)
[2023-11-18] MEDS: normal saline 1000ML IV soln IVB ONE (13:10)
[2023-11-18] MEDS: levoFLOXACIN 250mg tablet PO ONE (16:36)
[2023-11-18] MEDS ORDERED: LEVO250T74 PO (16:59)
[2023-11-18] MEDS ORDERED: HYDR-3973 PO (16:59)
[2023-11-18] MEDS: HYDROcodone/acetaminophen 10/325mg tab PO ONE (17:20)
[2023-11-18 17:26] VITALS: BP 128/88; PULSE 70; RESP 16; O2SAT 98
== END 2023-11-18 17:31 | disposition home or self-care (01) ==
LOC: ER 11:22
DX: N39.0 Urinary tract infection, site not specified (principal); Z88.8 Allergy status to other drugs, medicaments and biological substances; Z88.2 Allergy status to sulfonamides; Z79.82 Long term (current) use of aspirin; Z79.899 Other long term (current) drug therapy; Z79.2 Long term (current) use of antibiotics; Z98.51 Tubal ligation status
CPT/HCPCS: 74176; 80053; 81001; 81025; 83690; 85025; 87077; 87088; 87186; 96361; 96374; 96375; 99285; J2270; J2405; J7030

== ENCOUNTER 2023-12-15 11:44 | Emergency (ER) | payer BC, MEDICAID ==
[~2023-12-15] VITALS: Ht 170.2 cm; Wt 68.6 kg
[2023-12-15 12:37] LABS: BILIRUBIN,URINE NEGATIVE (Neg); CLARITY,URINE SLIGHTLY CLOUDY (Clear); COLOR,URINE YELLOW (Yellow); GLUCOSE, URINE NEGATIVE (Neg); KETONES,URINE NEGATIVE (Neg); LEUKOCYTE ESTERASE ,URINE NEGATIVE (Neg); NITRITES, URINE NEGATIVE (Neg); OCCULT BLOOD,URINE MODERATE (Neg); PROTEIN,URINE NEGATIVE (Neg); UROBILINOGEN,URINE 0.2 E.U/dL (0.2-1.0)
[2023-12-15 12:41] LABS: BASOPHILS % (AUTO) 1.2 % (0-1); EOSINOPHILS # (AUTO) 0.1 X10'3 (0-0.9); HEMOGLOBIN 11.1 g/dl (12.0-16.0); LYMPHOCYTES # (AUTO) 0.6 X10'3 (1.1-4.8); MEAN CORPUSCULAR VOLUME 90.8 FL (78-98); MONOCYTES # (AUTO) 0.2 X10'3 (0-0.9); NEUTROPHILS % (AUTO) 51.9 % (42-75); RED BLOOD COUNT 3.63 X10'6 (4.20-5.60)
[2023-12-15 12:42] LABS: SQUAMOUS EPITHELIAL CELL,UR MANY /LPF (FEW); UA COLLECTION TYPE NON-SPECIFIED
[2023-12-15 12:43] LABS: EOSINOPHILS % (AUTO) 5.5 % (0-6); LYMPHOCYTES % (AUTO) 29.7 % (21-51); MEAN CORPUSCULAR HEMOGLOBIN 30.7 PG (27.0-31.0); MEAN CORPUSCULAR HGB CONC 33.8 g/dL (33.0-36.5); MEAN PLATELET VOLUME 7.2 FL (7.4-10.4); MONOCYTES % (AUTO) 11.7 % (2-12); PLATELET COUNT 183 X10'3 (140-440); RED CELL DISTRIBUTION WIDTH 13.4 % (11.5-14.5)
[2023-12-15 12:43] LABS: AMORPHOUS URATES 1+; BACTERIA,URINE FEW /HPF (Neg); WBC,URINE 0-4 /HPF (0-4)
[2023-12-15 12:49] LABS: ANION GAP 7 (8-16); BILIRUBIN,TOTAL 2.6 MG/DL (0.1-1.0); BLOOD UREA NITROGEN 19 MG/DL (7-18); BUN/CREATININE RATIO 12.1 (10.0-20.0); CALCIUM 9.2 MG/DL (8.5-10.1); CHLORIDE 102 MMOL/L (99-107); CREATININE 1.57 MG/DL (0.40-0.90); GLUCOSE 100 MG/DL (70-104); POTASSIUM 3.9 MMOL/L (3.5-5.1); SODIUM 138 MMOL/L (135-145); TOTAL CARBON DIOXIDE 29.2 MMOL/L (24-32); TOTAL PROTEIN 7.8 G/DL (6.4-8.2); eCRCL 47 ML/MIN; eGFR 37 ML/MIN
[2023-12-15 12:50] LABS: ALANINE AMINOTRANSFERASE 241 U/L (12-78); ALBUMIN/GLOBULIN RATIO 1.1 (1.1-1.5); ALKALINE PHOSPHATASE 352 IU/L (46-116); ASPARTATE AMINO TRANSFERASE 113 U/L (10-37)
[2023-12-15 12:51] LABS: URINE AMPHETAMINE SCREEN NEGATIVE (Neg); URINE BARBITUATE SCREEN NEGATIVE (Neg); URINE BENZODIAZEPINES SCREEN NEGATIVE (Neg); URINE CANNABINOID SCREEN NEGATIVE (Neg); URINE COCAINE SCREEN NEGATIVE (Neg); URINE METHADONE SCREEN NEGATIVE (Neg); URINE OPIATE SCREEN NEGATIVE (Neg); URINE PHENCYCLIDINE SCREEN NEGATIVE (Neg)
[2023-12-15 13:10] LABS: PLATELET ESTIMATE NORMAL; TOTAL CELLS COUNTED 100
[2023-12-15] MEDS: diphenhydrAMINE 25mg capsule PO ONE (19:18)
[2023-12-16] MEDS: diphenhydrAMINE 25mg capsule PO ONE (04:04)
[2023-12-16] MEDS: hydrOXYzine 25 MG tablet PO ONE (09:00)
[2023-12-16] MEDS: chloestyramine/aspartame 4gm packet PO ONE (09:30)
[2023-12-16 22:21] LABS: EOSINOPHILS # (AUTO) 0.1 X10'3 (0-0.9); HEMATOCRIT 32.9 % (35.0-45.0); HEMOGLOBIN 11.2 g/dl (12.0-16.0); LYMPHOCYTES # (AUTO) 0.7 X10'3 (1.1-4.8); LYMPHOCYTES % (AUTO) 37.7 % (21-51); MEAN CORPUSCULAR HEMOGLOBIN 30.8 PG (27.0-31.0); MEAN CORPUSCULAR VOLUME 90.7 FL (78-98); MEAN PLATELET VOLUME 7.1 FL (7.4-10.4); MONOCYTES # (AUTO) 0.3 X10'3 (0-0.9); MONOCYTES % (AUTO) 13.3 % (2-12); NEUTROPHILS # (AUTO) 0.9 X10'3 (1.8-7.7); PLATELET COUNT 156 X10'3 (140-440); RED BLOOD COUNT 3.63 X10'6 (4.20-5.60); RED CELL DISTRIBUTION WIDTH 13.2 % (11.5-14.5)
[2023-12-16 22:41] LABS: ALANINE AMINOTRANSFERASE 142 U/L (12-78); ALBUMIN 3.7 G/DL (3.4-5.0); ALBUMIN/GLOBULIN RATIO 1.1 (1.1-1.5); ALKALINE PHOSPHATASE 335 IU/L (46-116); AMYLASE 38 U/L (25-115); ANION GAP 11 (8-16); ASPARTATE AMINO TRANSFERASE 39 U/L (10-37); BILIRUBIN,DIRECT 1.6 MG/DL (0-0.3); BILIRUBIN,TOTAL 3.1 MG/DL (0.1-1.0); BLOOD UREA NITROGEN 19 MG/DL (7-18); BUN/CREATININE RATIO 11.7 (10.0-20.0); CALCIUM 9.3 MG/DL (8.5-10.1); CHLORIDE 102 MMOL/L (99-107); CREATININE 1.62 MG/DL (0.40-0.90); GLUCOSE 89 MG/DL (70-104); LIPASE 43 U/L (16-77); POTASSIUM 4.2 MMOL/L (3.5-5.1); SODIUM 139 MMOL/L (135-145); TOTAL CARBON DIOXIDE 26.2 MMOL/L (24-32); TOTAL PROTEIN 7.2 G/DL (6.4-8.2); eCRCL 46 ML/MIN; eGFR 36 ML/MIN
[2023-12-16 23:00] LABS: PLATELET ESTIMATE NORMAL; TOTAL CELLS COUNTED 100
[2023-12-17] MEDS: chloestyramine/aspartame 4gm packet PO SCH (01:34)
[2023-12-17 10:01] LABS: ALANINE AMINOTRANSFERASE 130 U/L (12-78); ALBUMIN 3.6 G/DL (3.4-5.0); ALKALINE PHOSPHATASE 329 IU/L (46-116); ANION GAP 9 (8-16); ASPARTATE AMINO TRANSFERASE 34 U/L (10-37); BILIRUBIN,TOTAL 3.4 MG/DL (0.1-1.0); BLOOD UREA NITROGEN 19 MG/DL (7-18); BUN/CREATININE RATIO 11.9 (10.0-20.0); CALCIUM 9.7 MG/DL (8.5-10.1); CHLORIDE 103 MMOL/L (99-107); CREATININE 1.59 MG/DL (0.40-0.90); GLUCOSE 106 MG/DL (70-104); POTASSIUM 4.7 MMOL/L (3.5-5.1); SODIUM 138 MMOL/L (135-145); TOTAL CARBON DIOXIDE 25.6 MMOL/L (24-32); TOTAL PROTEIN 7.2 G/DL (6.4-8.2); eCRCL 47 ML/MIN; eGFR 36 ML/MIN
[2023-12-17] MEDS ORDERED: chloestyramine/aspartame 4gm packet PO SCH (11:00)
[2023-12-17] MEDS ORDERED: CHOL5POW PO (14:21)
[2023-12-17 14:31] VITALS: BP 143/94; PULSE 72; RESP 16; TEMP 98.2; O2SAT 99
== END 2023-12-17 14:34 | disposition home or self-care (01) ==
LOC: ER 11:45
DX: E80.6 Other disorders of bilirubin metabolism (principal); D64.9 Anemia, unspecified; Z20.822 Contact with and (suspected) exposure to COVID-19; Z88.8 Allergy status to other drugs, medicaments and biological substances; Z88.2 Allergy status to sulfonamides; Z79.82 Long term (current) use of aspirin; Z79.899 Other long term (current) drug therapy; Z79.52 Long term (current) use of systemic steroids; Z98.51 Tubal ligation status
CPT/HCPCS: 36415; 80053; 80305; 81001; 82140; 82150; 82248; 82977; 83690; 85007; 85025; 87811; 99285; Q0163; Q0177

== ENCOUNTER 2023-12-24 19:59 | Emergency (ER) | payer BC, MEDICAID ==
[~2023-12-24] VITALS: Ht 170.2 cm; Wt 64.5 kg
[~2023-12-24 19:59] MED LIST changes: +CHOL5POW PO
[2023-12-24 20:44] LABS: BASOPHILS % (AUTO) 1.5 % (0-1); EOSINOPHILS # (AUTO) 0.1 X10'3 (0-0.9); EOSINOPHILS % (AUTO) 4.1 % (0-6); HEMATOCRIT 30.3 % (35.0-45.0); HEMOGLOBIN 10.3 g/dl (12.0-16.0); LYMPHOCYTES # (AUTO) 0.8 X10'3 (1.1-4.8); LYMPHOCYTES % (AUTO) 38.5 % (21-51); MEAN CORPUSCULAR HEMOGLOBIN 30.8 PG (27.0-31.0); MEAN CORPUSCULAR VOLUME 90.7 FL (78-98); MEAN PLATELET VOLUME 7.7 FL (7.4-10.4); MONOCYTES # (AUTO) 0.2 X10'3 (0-0.9); MONOCYTES % (AUTO) 11.6 % (2-12); NEUTROPHILS # (AUTO) 0.9 X10'3 (1.8-7.7); NEUTROPHILS % (AUTO) 44.3 % (42-75); PLATELET COUNT 212 X10'3 (140-440); RED BLOOD COUNT 3.34 X10'6 (4.20-5.60); RED CELL DISTRIBUTION WIDTH 13.1 % (11.5-14.5)
[2023-12-24 21:04] LABS: ALANINE AMINOTRANSFERASE 155 U/L (12-78); ALBUMIN 3.5 G/DL (3.4-5.0); ALBUMIN/GLOBULIN RATIO 0.8 (1.1-1.5); ALKALINE PHOSPHATASE 230 IU/L (46-116); ANION GAP 9 (8-16); ASPARTATE AMINO TRANSFERASE 61 U/L (10-37); BILIRUBIN,TOTAL 1.4 MG/DL (0.1-1.0); BLOOD UREA NITROGEN 19 MG/DL (7-18); BUN/CREATININE RATIO 12.6 (10.0-20.0); CALCIUM 8.8 MG/DL (8.5-10.1); CHLORIDE 101 MMOL/L (99-107); CREATININE 1.51 MG/DL (0.40-0.90); GLUCOSE 193 MG/DL (70-104); LIPASE 48 U/L (16-77); POTASSIUM 4.5 MMOL/L (3.5-5.1); SODIUM 135 MMOL/L (135-145); TOTAL PROTEIN 7.7 G/DL (6.4-8.2); eCRCL 49 ML/MIN; eGFR 39 ML/MIN
[2023-12-24 21:21] LABS: PLATELET ESTIMATE NORMAL; TOTAL CELLS COUNTED 100
[2023-12-24 21:23] LABS: HCG SERUM QL NEGATIVE
[2023-12-24 21:43] LABS: BILIRUBIN,URINE NEGATIVE (Neg); CLARITY,URINE CLEAR (Clear); COLOR,URINE YELLOW (Yellow); GLUCOSE, URINE NEGATIVE (Neg); KETONES,URINE NEGATIVE (Neg); LEUKOCYTE ESTERASE ,URINE NEGATIVE (Neg); NITRITES, URINE NEGATIVE (Neg); OCCULT BLOOD,URINE SMALL (Neg); PH,URINE 5.5 (4.8-8.0); PROTEIN,URINE NEGATIVE (Neg); UROBILINOGEN,URINE 0.2 E.U/dL (0.2-1.0)
[2023-12-24 21:55] LABS: UA COLLECTION TYPE CLN CATCH MIDSTREAM
[2023-12-24 21:57] LABS: BACTERIA,URINE NONE SEEN /HPF (Neg); MUCUS STRANDS FEW /LPF (Neg); WBC,URINE 0-4 /HPF (0-4)
[2023-12-24 21:58] LABS: SQUAMOUS EPITHELIAL CELL,UR MODERATE /LPF (FEW); TRANSITIONAL EPI CELLS,URINE FEW /HPF
[2023-12-25] MEDS: normal saline 1000ML IV soln IVB ONE (00:05)
[2023-12-25] MEDS: proCHLORperazine 10 MG/2 ml inj IV ONE (00:06)
[2023-12-25] MEDS: morphine 2 MG/ML inj. syringe IV PRN (00:06)
[2023-12-25] MEDS ORDERED: HYDR-3965 PO (01:15)
[2023-12-25] MEDS ORDERED: ONDA-245 PO (01:15)
[2023-12-25 01:49] VITALS: BP 117/71; PULSE 73; RESP 14; TEMP 98.3; O2SAT 99
== END 2023-12-25 01:52 | disposition home or self-care (01) ==
LOC: ER 20:00
DX: R10.11 Right upper quadrant pain (principal); I12.9 Hypertensive chronic kidney disease with stage 1 through stage 4 chronic kidney disease, or unspecified chronic kidney disease; N18.9 Chronic kidney disease, unspecified; Z88.8 Allergy status to other drugs, medicaments and biological substances; Z88.2 Allergy status to sulfonamides; Z79.82 Long term (current) use of aspirin; Z79.899 Other long term (current) drug therapy; Z98.51 Tubal ligation status
CPT/HCPCS: 36415; 71250; 74176; 80053; 81001; 83605; 83690; 84145; 84703; 85007; 85025; 87040; 96361; 96374; 96375; 99285; J0780; J2270; J7030